=== PATIENT | male | born 1940 | race Caucasian/White ===

== ENCOUNTER 2017-08-10 12:36 | Inpatient (IN) | payer OTHER, MEDICAID ==
[2017-08-10 12:41] VITALS: BMI 26.1
--- NOTE | 2017-08-10 12:50 | DR.SOBA ---
HPI - Time Seen Time seen: 12:45 - Primary Care Physician Primary Care Physician: KEITH - Complaints Chief Complaint Doctors Comments: Patient presents with increasing shortness of breath for the past week. He denies fever, vomiting or diarrhea. He states that he uses oxygen at home w/o having to increase for comfort. He denies getting the influenza shot. Chief Complaint:: PT. C/O SHORTNESS OF BREATH X 1 WEEK AND GENERALIZED WEAKNESS - Source History Provided: Patient, Family Member - Mode of Arrival Mode of Arrival: Ambulatory - Timing Onset of Chief Complaint: 08/03/17 PMH - PMH Past Medical History: Yes Past Medical History: Dyslipidemia, Hypertension Past Surgical History: Yes Surgical History: CABG/Valve Surgery - Family History History of Family Medical Conditions: Yes Family Medical History: Cancer, [place] - Social History Does patient currently use any type of tobacco product: Yes Have you used tobacco products in the last 12 months: Yes Type of Tobacco Use: Cigarettes Does any household member use tobacco: No Alcohol Use: Occasionally Do you use any recreational Drugs:: No Lives With: Family Lives Where: Home - infectious screening In the last 2 months have you had wt loss of >10#?: NO Have you had fever, night sweats or hemotysis?: No Have you traveled outside the country in the last 6 months?: No Isolation: Standard ROS - Review of Systems Constitutional: negative: Diaphoresis Eyes: No Symptoms Reported ENTM: No Symptoms Reported Respiratoy: Short of Breath Cardiovascular: No Symptoms Reported Gastrointestinal/Abdominal: No Symptoms Reported Genitourinary: No Symptoms Reported Neurological: No Symptoms Reported Musculoskeletal: No Symptoms Reported Integumentary: No Symptoms Reported Hematologic/Lymphatic: No Symptoms Reported Endocrine: No Symptoms Reported Psychiatric: No Symptoms Reported All Other Systems: Reviewed and Negative PE - Vital Signs Vitals: Temperature 98.5 F Pulse Rate [Right Brachial] 88 Pulse Rate 97 Respiratory Rate 20 Blood Pressure [Right Arm] 152/65 Blood Pressure 146/67 O2 Sat by Pulse Oximetry 92 - General Limitations: No Limitations General Appearance: Alert, In No Apparent Distress - Head Head Exam: Normal Inspection, Atraumatic - Eyes Eye exam: Normal Appearance, PERRL, EOMI - ENT ENT Exam: Normal Exam - Neck Neck Exam: Normal Inspection, Full ROM - Chest Chest Inspection: Normal Inspection, Symmetric Chest Wall Rise - Respiratory Respiratory Exam: Normal Lung Sounds Bilat Respiratory Exam: Bilateral Clear to Auscultation - Cardiovascular Cardiovascular Exam: Regular Rate, Normal Rhythm - Abdominal Exam Abdominal Exam: Normal Inspection Abdominal Tenderness: negative: RUQ, RLQ, LUQ, LLQ, Epigastrium, Suprapubic, Diffuse, Mild, Moderate, Severe, Other - Extremities Extremities Exam: Edema (2-3+lower) - Back Back Exam: Normal Inspection, Full ROM - Neurologic Neurological Exam: Alert, Oriented X3, CN II-XII Intact - Psychiatric Psychiatric Exam: Normal Affect, Normal Mood - Skin Skin Exam: Warm, Dry, Intact Course - Reevaluation 1st: Improved - Consultation Called: 16:55 (Dr Brock agreed to admit for further evaluation and treatment) ROR - Labs Reviewed Result Diagrams: 08/10/17 13:05 08/10/17 13:05 Laboratory: WBC 7.1 X10^3/uL (3.6-10.0) 08/10/17 13:05 RBC 3.26 X10^6/uL (4.7-6.0) L 08/10/17 13:05 Hgb 7.1 g/dL (13.5-18.0) L 08/10/17 13:05 Hct 22.9 % (42.0-54.0) L 08/10/17 13:05 MCV 70.5 fL (80.0-100.0) L 08/10/17 13:05 MCH 21.8 pg (27.0-34.0) L 08/10/17 13:05 MCHC 31.0 g/dL (33.0-35.0) L 08/10/17 13:05 RDW 22.6 % (11.6-16.5) H 08/10/17 13:05 Plt Count 281 X10^3/uL (150.0-450.0) 08/10/17 13:05 Plt Count Comment Adequate (ADEQUATE) 08/10/17 13:05 MPV 9.7 fL (7.4-11.0) 08/10/17 13:05 Neut % 75.6 % (42.0-75.0) H 08/10/17 13:05 Lymph % 11.3 % (21.0-51.0) L 08/10/17 13:05 Stoddard % 11.1 % (0.0-13.0) 08/10/17 13:05 Eos % 0.7 % (0.9-2.9) L 08/10/17 13:05 Baso % 1.3 % (0.2-1.0) H 08/10/17 13:05 Neut # 5.3 x10^3/uL (2.2-4.8) H 08/10/17 13:05 Lymph # 0.8 X10^3/uL (1.3-2.9) L 08/10/17 13:05 Stoddard # 0.8 x10^3/uL (0.3-0.8) 08/10/17 13:05 Eos # 0.0 x10^3/uL (0.0-0.2) 08/10/17 13:05 Baso # 0.1 X10^3/uL (0.0-0.1) 08/10/17 13:05 Absolute Nucleated RBC 0.4 /100WBC 08/10/17 13:05 Plt Morphology Comment Normal (NORMAL) 08/10/17 13:05 RBC Morphology Abnormal (NORMAL) 08/10/17 13:05 Hypochromasia 2+ A 08/10/17 13:05 Poikilocytosis Slight A 08/10/17 13:05 Anisocytosis 2+ A 08/10/17 13:05 Microcytosis 1+ A 08/10/17 13:05 Target Cells Slight A 08/10/17 13:05 D-Dimer 2070 ng/mL (0-400) H* 08/10/17 13:05 Sample Site Rra 08/10/17 15:08 ABG pH 7.440 (7.35-7.45) 08/10/17 15:08 ABG pCO2 37.0 mmHg (35.0-45.0) 08/10/17 15:08 ABG pO2 59.0 mmHg (80.0-100.0) L 08/10/17 15:08 ABG HCO3 25.1 mmol/L (22-26) 08/10/17 15:08 ABG O2 Saturation 91.0 % (90-100) 08/10/17 15:08 ABG Base Excess 1.1 mmol/L (-2.0-2.0) 08/10/17 15:08 Piotr Test Pos 08/10/17 15:08 A-a Gradient 94.0 mmHg 08/10/17 15:08 FiO2 28.000 08/10/17 15:08 Blood Gas Comments Audrey well mm cs 08/10/17 15:08 Sodium 138 mmol/L (136-145) 08/10/17 13:05 Corrected Sodium 140 mmol/L (136-145) 08/10/17 13:05 Potassium 4.8 mmol/L (3.5-5.1) 08/10/17 13:05 Chloride 104 mmol/L (98-107) 08/10/17 13:05 Carbon Dioxide 25.7 mmol/L (21-32) 08/10/17 13:05 BUN 13 mg/dL (7-18) 08/10/17 13:05 Creatinine 1.14 mg/dL (0.70-1.30) 08/10/17 13:05 Est GFR (MDRD) Af Amer > 60 (>60) 08/10/17 13:05 Est GFR (MDRD) Non-Af > 60 (>60) 08/10/17 13:05 Glucose 166 mg/dL (65-99) H 08/10/17 13:05 Calcium 7.8 mg/dL (8.5-10.1) L 08/10/17 13:05 Corrected Calcium 8.7 mg/dL (8.5-10.1) 08/10/17 13:05 Total Bilirubin 0.30 mg/dL (0.2-1.0) 08/10/17 13:05 AST 43 Units/L (15-37) H 08/10/17 13:05 ALT 52 Units/L (12-78) 08/10/17 13:05 Alkaline Phosphatase 99 Units/L (46-116) 08/10/17 13:05 Creatine Kinase 47 Units/L (39-308) 08/10/17 13:05 CK-MB (CK-2) < 1.0 ng/mL (0-4.0) 08/10/17 13:05 CK/CKMB % Calc 2.1 % (<4) 08/10/17 13:05 Troponin I 0.19 ng/mL (0-1.5) 08/10/17 13:05 Total Protein 6.8 g/dL (6.4-8.2) 08/10/17 13:05 Albumin 2.9 g/dL (3.4-5.0) L 08/10/17 13:05 Globulin 3.9 g/dL (2.5-4.5) 08/10/17 13:05 Albumin/Globulin Ratio 0.7 Ratio (1.1-2.1) L 08/10/17 13:05 Influenza Type A (PCR) Negative (NEGATIVE) 08/10/17 12:57 Influenza Type B (PCR) Negative (NEGATIVE) 08/10/17 12:57 - XRAY XRAY Interpreted by: Radiologist (Chest: Continued cardiac enlargement with findings of previous sternotomy (05/25/16). There are bilateral lower lobe airspace densities with pleural reaction. The central vessels are congested. No pneumothorax is seen. Impression: Stable cardiac enlargement and post CABG. Interval appearance of bibasal infiltrates and pleural effusions with may represent any combination of CHF and pneumonia.) - Diagnosis Discharge Problem: Pneumonia-Bibasilar CHF (congestive heart failure) Qualifiers: Congestive heart failure type: unspecified congestive heart failure type Congestive heart failure chronicity: acute Qualified Code(s): I50.9 - Heart failure, unspecified - Discharge Plan Condition: Stable - Follow ups/Referrals Follow ups/Referrals: KVNG PARKER [Primary Care Provider] - 3 days - Instructions
[2017-08-10 13:21] LABS: BASOPHILS # (AUTO) 0.1 X10^3/uL (0.0-0.1); BASOPHILS % (AUTO) 1.3 % (0.2-1.0); EOSINOPHILS % (AUTO) 0.7 % (0.9-2.9); HEMATOCRIT 22.9 % (42.0-54.0); HEMOGLOBIN 7.1 g/dL (13.5-18.0); LYMPHOCYTES # (AUTO) 0.8 X10^3/uL (1.3-2.9); LYMPHOCYTES % (AUTO) 11.3 % (21.0-51.0); MEAN CORPUSCULAR HEMOGLOBIN 21.8 pg (27.0-34.0); MEAN CORPUSCULAR VOLUME 70.5 fL (80.0-100.0); MEAN PLATELET VOLUME 9.7 fL (7.4-11.0); MONOCYTES # (AUTO) 0.8 x10^3/uL (0.3-0.8); MONOCYTES % (AUTO) 11.1 % (0.0-13.0); NEUTROPHILS # (AUTO) 5.3 x10^3/uL (2.2-4.8); NEUTROPHILS % (AUTO) 75.6 % (42.0-75.0); PLATELET COUNT 281 X10^3/uL (150.0-450.0); RED BLOOD COUNT 3.26 X10^6/uL (4.7-6.0); RED CELL DISTRIBUTION WIDTH 22.6 % (11.6-16.5); WHITE BLOOD COUNT 7.1 X10^3/uL (3.6-10.0)
--- NOTE | 2017-08-10 13:31 | RAD ---
Examination: AP chest History: SOB Comparison reference 05/25/2016 Findings: Continued cardiac enlargement with findings of previous sternotomy. There are bilateral low er lobe airspace densities with pleural reaction. The central vessels are congested. No pneumothorax is seen. Impression: Stable cardiac enlargement and post CABG. Interval appearance of bibasal infiltrates and pleural effusions which may represent any combination of CHF and pneumonia. Reported By:
[2017-08-10 13:37] LABS: BLOOD UREA NITROGEN 13 mg/dL (7-18); CALCIUM 7.8 mg/dL (8.5-10.1); CARBON DIOXIDE 25.7 mmol/L (21-32); CHLORIDE 104 mmol/L (98-107); COR NA(FOR HYPERGLY) 140 mmol/L (136-145); CREATININE 1.14 mg/dL (0.70-1.30); SODIUM 138 mmol/L (136-145); TROPONIN I 0.19 ng/mL (0-1.5); eGFR BLACK RACES > 60 (>60); eGFR NON BLACK RACES > 60 (>60)
[2017-08-10 13:43] LABS: ALANINE AMINOTRANSFERASE 52 Units/L (12-78); ALBUMIN 2.9 g/dL (3.4-5.0); ALKALINE PHOSPHATASE 99 Units/L (46-116); ASPARTATE AMINO TRANSFERASE 43 Units/L (15-37); CKMB % 2.1 % (<4); COR CA(FOR HYPOALB) 8.7 mg/dL (8.5-10.1); CREATINE KINASE 47 Units/L (39-308); CREATINE KINASE MB < 1.0 ng/mL (0-4.0); TOTAL PROTEIN 6.8 g/dL (6.4-8.2)
[2017-08-10 13:49] LABS: HYPOCHROMASIA 2+; PLATELET MORPHOLOGY COMMENT NORMAL (NORMAL); POIKILOCYTOSIS SLIGHT
[2017-08-10 13:50] LABS: ANISOCYTOSIS 2+; MICROCYTOSIS 1+; TARGET CELLS SLIGHT
[2017-08-10] MEDS ORDERED: LASIX IVP SCH (14:00)
[2017-08-10] MEDS ORDERED: LASIX IVP ONE (14:38)
[2017-08-10] MEDS ORDERED: DUONEB 0.5 MG/3 MG NEB SCH (14:45)
[2017-08-10 15:11] LABS: ABG BASE EXCESS 1.1 mmol/L (-2.0-2.0); ABG HCO3 25.1 mmol/L (22-26)
[2017-08-10 15:12] LABS: ABG ALLEN TEST POS
--- NOTE | 2017-08-10 15:22 | CT ---
HISTORY: Dyspnea, elevated D-dimer Study: CTA chest Comparison: None Technique: Serial axial images were obtained from thoracic inlet to the upper abdomen with of IV cont rast. Coronal and sagittal three-dimensional reformatted images were also submitted utilizing CTA pro tocol. Findings: Scattered mostly subcentimeter lymph nodes measured across their short axis are noted within the medi astinum. Images demonstrate soft tissue density in irregularity can the region of the left sternoclav icular joint. Correlate clinically. The heart is enlarged. Atherosclerotic changes are seen within th e visualized coronary arteries and aorta. Timing of the contrast bolus is suboptimal and nondiagnosti c for pulmonary emboli. Emphysematous changes are seen within both lungs. Bilateral pleural effusions are demonstrated as well left greater than right fissural fluid is noted on the right as well. Atele ctasis and/or infiltrate are seen within both lower lobes. Degenerative changes of the visualized spi ne are noted. IMPRESSION: Suboptimal timing of the contrast bolus resulting in nondiagnostic images for pulmonary emboli. Emphysematous changes with bibasilar atelectasis and/or infiltrate. Bilateral pleural effusions left greater than right. Cardiomegaly. Other findings as noted above. Reported By:
[2017-08-10] MEDS ORDERED: NS 1000 ML 1,000 ML ONE (15:38)
[2017-08-10] MEDS: LEVAQUIN PREMIX IV 750 MG 750 MG/150 ML BAG IV SCH (15:49)
--- NOTE | 2017-08-10 16:52 | CT ---
HISTORY: Dyspnea and elevated D-dimer. Study: CT chest with contrast Comparison: CT chest and chest x-ray dated same day. Technique: Multiple axial images of the chest were obtained from the thoracic inlet to the upper abdo men after the administration of IV contrast. MIP images were obtained. Dose reduction techniques incl uding Automated Exposure Control (AEC) and adjustment of mA and kV were utilized. Findings: The mediastinum does not demonstrate significant pathological lymphadenopathy. There is no paracardi al effusion observed. The thoracic aorta is normal in its contour without evidence for aneurysmal di latation. The central pulmonary arterial system does not demonstrate central filling defects to sugg est pulmonary emboli. Thoracic aorta and coronary artery calcifications appear unchanged. Cardiomegal y without obvious right heart strain. Moderate centrilobular emphysematous changes. Moderate left and small right pleural effusions with as sociated compressive atelectasis versus infiltrate. Interlobular septal thickening and fluid within t he fissures. No obvious suspicious pulmonary nodule, mass, or pneumothorax. Bibasilar scarring versus atelectasis. The upper abdominal and osseous structures appear unchanged. IMPRESSION: 1. No CT evidence of acute pulmonary embolus. 2. Constellation of findings likely representing pulmonary edema secondary to congestive heart failur e. Underlying infiltrate not entirely excluded. Reported By:
[2017-08-10] MEDS ORDERED: TUSSIONEX PENNKINETIC SUSP PO PRN (17:04)
[2017-08-10] MEDS ORDERED: ALBUTEROL SULFATE INH PRN (17:09)
[2017-08-10] MEDS ORDERED: COLCRYS TAB 0.6 MG PO SCH (17:09)
[2017-08-10] MEDS ORDERED: SALINE 0.9% 3 ML NEB TX ONE ×2 (17:43→17:44)
[2017-08-10] MEDS: NS 1/2 1000 ML IV 1,000 ML IV SCH (18:28)
[2017-08-10] MEDS ORDERED: VENTOLIN or PROAIR HFA IN PRN (18:29)
[2017-08-10] MEDS ORDERED: COLCRYS TAB 0.6 MG PO PRN (19:00)
[2017-08-10 19:56] LABS: CKMB % 2.1 % (<4); CREATINE KINASE MB 1.2 ng/mL (0-4.0); TROPONIN I 0.23 ng/mL (0-1.5)
[2017-08-10] MEDS: PULMICORT NEB TX 0.5 MG NEB SCH (20:53)
[2017-08-10] MEDS: DUONEB 0.5 MG/3 MG NEB SCH (20:53)
[2017-08-10] MEDS: ROBITUSSIN DM PO SCH (21:32)
[2017-08-10] MEDS: PLETAL PO SCH (21:32)
[2017-08-11 01:45] LABS: CKMB % 2.1 % (<4); CREATINE KINASE MB 1.1 ng/mL (0-4.0); TROPONIN I 0.28 ng/mL (0-1.5)
[2017-08-11 05:22] LABS: ALANINE AMINOTRANSFERASE 48 Units/L (12-78); ALBUMIN 2.9 g/dL (3.4-5.0); ALKALINE PHOSPHATASE 92 Units/L (46-116); ASPARTATE AMINO TRANSFERASE 36 Units/L (15-37); BLOOD UREA NITROGEN 12 mg/dL (7-18); CARBON DIOXIDE 26.4 mmol/L (21-32); CHLORIDE 104 mmol/L (98-107); COR CA(FOR HYPOALB) 8.9 mg/dL (8.5-10.1); CREATININE 0.89 mg/dL (0.70-1.30); SODIUM 140 mmol/L (136-145); TOTAL PROTEIN 6.8 g/dL (6.4-8.2); eGFR BLACK RACES > 60 (>60); eGFR NON BLACK RACES > 60 (>60)
[2017-08-11 05:28] LABS: BASOPHILS # (AUTO) 0.1 X10^3/uL (0.0-0.1); BASOPHILS % (AUTO) 1.2 % (0.2-1.0); EOSINOPHILS # (AUTO) 0.1 x10^3/uL (0.0-0.2); EOSINOPHILS % (AUTO) 0.9 % (0.9-2.9); HEMATOCRIT 21.6 % (42.0-54.0); LYMPHOCYTES # (AUTO) 1.6 X10^3/uL (1.3-2.9); MEAN CORPUSCULAR HEMOGLOBIN 21.9 pg (27.0-34.0); MEAN CORPUSCULAR HGB CONC 31.4 g/dL (33.0-35.0); MEAN CORPUSCULAR VOLUME 69.7 fL (80.0-100.0); MEAN PLATELET VOLUME 10.1 fL (7.4-11.0); NEUTROPHILS # (AUTO) 5.1 x10^3/uL (2.2-4.8); NEUTROPHILS % (AUTO) 64.9 % (42.0-75.0); PLATELET COUNT 263 X10^3/uL (150.0-450.0); RED CELL DISTRIBUTION WIDTH 22.5 % (11.6-16.5); WHITE BLOOD COUNT 7.9 X10^3/uL (3.6-10.0)
[2017-08-11 05:49] LABS: HEMOGLOBIN 6.8 g/dL (13.5-18.0)
[2017-08-11 06:25] LABS: ANISOCYTOSIS 2+; HYPOCHROMASIA 2+; MICROCYTOSIS 1+; PLATELET MORPHOLOGY COMMENT NORMAL (NORMAL); POIKILOCYTOSIS 1+
[2017-08-11 06:26] LABS: TARGET CELLS PRESENT
[2017-08-11 06:47] LABS: CKMB % 3.3 % (<4); CREATINE KINASE MB 1.8 ng/mL (0-4.0); TROPONIN I 0.35 ng/mL (0-1.5)
--- NOTE | 2017-08-11 07:13 | RAD ---
Examination: Chest, PA and lateral views History: Pneumonia, CHF Comparison reference 08/10/2017 Findings: Continued cardiomegaly and vascular congestion. Interval improvement in aeration of the natasha gs especially in the lower lobes. Persistent airspace disease and pleural fluid. No new abnormality. Impression: Interval improvement since 1 day prior. Reported By:
[2017-08-11] MEDS ORDERED: LEVAQUIN PREMIX IV 750 MG 750 MG/150 ML BAG IV SCH (09:00)
[2017-08-11] MEDS ORDERED: NS 1/2 1000 ML IV 1,000 ML IV ONE (09:15)
[2017-08-11] MEDS: DUONEB 0.5 MG/3 MG NEB SCH ×4 (09:24→20:49)
[2017-08-11] MEDS: PULMICORT NEB TX 0.5 MG NEB SCH ×2 (09:24→20:49)
[2017-08-11] MEDS: NS 1/2 1000 ML IV 1,000 ML IV SCH (09:47)
[2017-08-11] MEDS: PLETAL PO SCH ×2 (09:48→20:26)
[2017-08-11] MEDS: LASIX IVP SCH ×3 (09:49→20:35)
[2017-08-11] MEDS: ROBITUSSIN DM PO SCH ×4 (09:49→20:24)
[2017-08-11] MEDS: LIPITOR TAB 40 MG PO SCH (09:49)
[2017-08-11] MEDS: ZESTRIL TAB 10 MG PO SCH (09:49)
[2017-08-11] MEDS: LEVAQUIN PREMIX IV 750 MG 750 MG/150 ML BAG IV SCH (09:49)
[2017-08-11] MEDS: AVODART PO SCH (09:49)
[2017-08-11] MEDS: ASPIRIN EC 81 MG PO SCH (09:49)
[2017-08-11] MEDS: ZETIA TAB 10 MG PO SCH (09:49)
[2017-08-11] MEDS ORDERED: COLACE CAP 100 MG PO PRN (09:51)
[2017-08-11] MEDS ORDERED: MILK OF MAGNESIA PO PRN (09:51)
[2017-08-11] MEDS ORDERED: BENADRYL INJ 50 MG VIAL IVP PRN (11:05)
[2017-08-11] MEDS ORDERED: TYLENOL 325 MG TAB PO PRN (11:05)
[2017-08-11] MEDS ORDERED: NS 500 ML IV 500 ML IV ONE (11:05)
[2017-08-11] MEDS ORDERED: ALBUTEROL SULFATE PO PRN (11:39)
[2017-08-11] MEDS ORDERED: FLUTICASONE PROPIONATE 110 MCG PO PRN (11:39)
[2017-08-11] MEDS ORDERED: RESTORIL CAP 30 MG PO PRN (11:39)
[2017-08-11] MEDS ORDERED: CITALOPRAM HYDROBROMIDE PO SCH (11:45)
[2017-08-11] MEDS ORDERED: PATIENT'S HOME MEDICATION (Tizanidine Hcl [Zanaflex 4 Mg] 1 TAB) PO SCH (11:45)
[2017-08-11] MEDS ORDERED: ZANAFLEX PO PRN (12:31)
[2017-08-11] MEDS ORDERED: PROVENTIL NEB TX 0.083% 2.5MG/ 3ML NEB PRN (12:32)
[2017-08-11] MEDS: PROTONIX INJ 40 MG VIAL IVP SCH ×2 (12:43→20:24)
[2017-08-11] MEDS: PEPCID 20 MG IV PREMIX* 20 MG/50 ML BAG IV SCH ×2 (12:43→20:27)
[2017-08-11] MEDS ORDERED: NS 250 ML IV 250 ML IV ONE ×2 (14:36→15:30)
[2017-08-11] MEDS: LEVSIN/MAALOX/LIDOC VISC PO SCH ×2 (17:20→20:24)
--- NOTE | 2017-08-11 23:05 | DR.H&P ---
H&P - History & Physical for Day of: H&P Date: 08/10/17 - Chief Complaint Chief Complaint: short of breath, weakness - Allergies Allergies/Adverse Reactions: Allergies Allergy/AdvReac Type Severity Reaction Status Date / Time No Known Drug Allergies Allergy Verified 08/10/17 12:41 - History of Present Illness History of Present Illness: is a 76 year old patient of Ameena Ann who presented to the emergency room with reports of shortness of breath and generalized weakness. Patient also reports a persistant, productive cough. Patient reports that symptoms started approximately one week ago and have progressively gotten worse. He reports use of home oxygen. Patient states that he has had to increase oxygen to 4 liter/minute at home to obtain comfort. Patient denies fever, vomiting, or diarrhea. Patient reports a medical history of: CAD, Hyperlipidemia, Hypertension, Pneumonia. Oxygen saturation was noted to be 89% on room air when patient arrived to the ER. He was placed on nasal cannula at 3 L/min. On examination, heart is normal in rate and rhythm. Lungs sounds were noted to be diminished throughout. Abdomen round, soft, and non- tender with normal bowel sounds noted in all quadrants. Good movement noted to all extremities. 2+ pitting edema is noted to bilateral lower extremities. Vital signs on arrival were 98.5, 97, 22, 89% RA, 146/67. Labs were obtained. Abnormal labs values include the following: RBC 3.26, Hgb 7.1, Hct 22.9, MCV 70.5, MCH 21.8, MCHC 31.0, RDW 22.6, Neut% 75.6, Lymph% 11.3, Eos% 0.7, Baso% 1.3, Neut# 5.3, Lymph# 0.8, Hypochromasia 2+, Poikilocytosis Slight, Anisocytosis 2+, Micorcytosis 1+, Target Cells Slight, D-Dimer 2070, Glucose 166 , Calcium 7.8, AST 43, Albumin 2.9, A/G Ratio 0.7. Blood Cultures x2 Pending. ABG reports: PH: 7.440, PC02 37, PO2 59.0, HC03 25.1, O2 saturation 91%. EKG reported: Sinus Rhythm. Rate=89. Chest X-Ray reported: Stable cardiac enlargement and post CABG. Interval appearance of bibasal infiltrates and pleural effusions which may represent any combination of CHF and pneumonia. Chest CTA reported: @1346 Suboptimal timing of the contrast bolus resulting in non-diagnostic images for pulmonary emboli. Emphysematous changes with bibasilar atelectasis and/or infiltrate. Bilateral pleural effusions left greater than right. Cardiomegaly. A repeat CTA was obtained and reported: @ [address] evidence of acute pulmonary embolus. Constellation of findings likely representing pulmonary edema secondary to congestive heart failure. Underlying infiltrate not entirely excluded. Patient was given Lasix 40mg x 1 and duoneb x 1 in the ER with only slight improvement in symptoms noted. We admitted patient for further treatment and evaluation. He was started on the pneumonia protocol on Levaquin 750mg iv daily, respiratory tx and inhalers, Lasix 40mg iv daily, and NS at 75ml/hr. We plan to follow up with AM labs and continue to monitor patient. - Past Medical History Past Medical History: CHF, Coronary Artery Disease, Dyslipidemia, Hypertension - Past Surgical History Surgical History: CABG/Valve Surgery - Family History Family Medical History: Cancer, [place] - Social History Does patient currently use any type of tobacco product: Yes Have you used tobacco products in the last 12 months: Yes Type of Tobacco Use: Cigarettes Does any household member use tobacco: No Alcohol Use: Occasionally Drug Use: Prescription Drugs - Medications Home Medications: Albuterol Sulfate [Proair Hfa] 2 inhalation PO Q4H PRN 08/10/17 [History Confirmed 08/10/17] Aspirin [Adult Low Dose Aspirin EC] 1 tab PO DAILY 08/10/17 [History Confirmed 08/10/17] Atorvastatin Calcium [LIPITOR Tab 40 mg *] 1 tab PO DAILY 08/10/17 [History Confirmed 08/10/17] Cilostazol [PLETAL tab 100 mg *] 1 tab PO BID 08/10/17 [History Confirmed ] Citalopram Hydrobromide [Celexa 10 mg] 1 tab PO DAILY 08/10/17 [History Confirmed 08/10/17] Colchicine [Colcrys Tab 0.6 mg] 1 tab PO PRN PRN 08/10/17 [History Confirmed 06/17] Ezetimibe [ZETIA 10 MG *] 1 tab PO DAILY 08/10/17 [History Confirmed 08/10/17] Fluticasone Propionate [Flovent HFA 220 mcg] 110 mcg PO BID PRN 08/10/17 [ History Confirmed 08/10/17] Lisinopril [ZESTRIL *] 1 tab PO DAILY 08/10/17 [History Confirmed 08/10/17] Temazepam [RESTORIL 30 MG (GENERIC) *] 1 tab PO HS PRN 08/10/17 [History Confirmed 08/10/17] Tizanidine HCl [Zanaflex 4 mg] 1 tab PO Q8H 08/10/17 [History Confirmed 08/10/17 ] - Review of Systems Constitutional: Weakness. denies: No Symptoms Reported, See HPI, Fever, Chills , Sweats, Malaise, Other Eyes: No Symptoms Reported. denies: See HPI, Pain, Vision Change, Conjunctivae Inflammation, Eyelid Inflammation, Redness, Other ENT: No Symptoms Reported. denies: See HPI, Ear Pain, Ear Discharge, Nose Pain , Nose Discharge, Nose Congestion, Mouth Pain, Mouth Swelling, Throat Pain, Throat Swelling, Other Respiratory: Cough, Shortness of Breath, SOB with Excertion Cardiovascular: Edema (bilateral lower extremity 2+ pitting edema. ) Gastrointestinal: No Symptoms Reported. denies: See HPI, Nausea, Vomiting, Abdominal Pain, Diarrhea, Constipation, Melena, Hematochezia, Other Genitourinary: No Symptoms Reported. denies: See HPI, Dysuria, Frequency, Incontinence, Hematuria, Retention, Other Musculoskeletal: No Symptoms Reported. denies: See HPI, Shoulder Pain, Arm Pain , Back Pain, Hand Pain, Leg Pain, Foot Pain, Neck Pain, Other Skin: No Symptoms Reported. denies: See HPI, Rash, Lesions, Jaundice, Bruising , Wound, Ecchymosis, Other Neurological: Weakness - Physical Exam Vital Signs: Temperature 98.1 F Pulse Rate [Right Brachial] 90 Pulse Rate 91 Respiratory Rate 20 Blood Pressure [Right Arm] 101/55 Blood Pressure 146/67 O2 Sat by Pulse Oximetry 93 Oriented: Normal. negative: Time, Person, Place, Not Oriented, Unable to test, Other Eyes: Normal. negative: Blurred Vision, Diplopia, Discharge, Pain, Redness, Photophobia, Other Ear: Normal. negative: Right, Left, Swelling, Ecchymosis, Hemotypanum, Abrasion , Laceration Nose: Normal. negative: Injected, Discharge, Blood, Other Throat: Normal. negative: Tonsillar Hypertrophy, Red, Exudate, Dry, Other Respiratory: Diminished Throughout Cardiovascular: Edema (bilateral lower extremity 2+ pitting edema) : Normal Auscultation: Bowel Sounds: Normal Palpation: Normal Tenderness: Normal Skin: Decreased Turgur Musculoskeletal: Normal Psychiatric: Normal Mood Description: Calm Affect: Normal Speech Pattern: Clear - Assessment/Plan (1) Pneumonia Qualifiers: Pneumonia type: due to unspecified organism Laterality: bilateral Lung location: lower lobe of lung Qualified Code(s): J18.9 - Pneumonia, unspecified organism Status: Acute Plan: pneumonia protocol, levaquin 750mg iv daily, respiratory tx, supplemental oxygen, monitor labs and chest xray (2) CHF (congestive heart failure) Qualifiers: Congestive heart failure type: unspecified congestive heart failure type Congestive heart failure chronicity: acute Qualified Code(s): I50.9 - Heart failure, unspecified Status: Acute Plan: lasix 20mg iv bid, obtain echo in am, respiratory tx and inhalers, supplemental oxygen, continue to monitor labs and chest xray.
[2017-08-12] MEDS: NS 1/2 1000 ML IV 1,000 ML IV SCH ×2 (01:02→10:06)
[2017-08-12 06:34] LABS: BASOPHILS # (AUTO) 0.1 X10^3/uL (0.0-0.1); BASOPHILS % (AUTO) 1.1 % (0.2-1.0); EOSINOPHILS # (AUTO) 0.2 x10^3/uL (0.0-0.2); EOSINOPHILS % (AUTO) 2.6 % (0.9-2.9); HEMATOCRIT 24.3 % (42.0-54.0); HEMOGLOBIN 7.9 g/dL (13.5-18.0); LYMPHOCYTES # (AUTO) 1.5 X10^3/uL (1.3-2.9); LYMPHOCYTES % (AUTO) 18.5 % (21.0-51.0); MEAN CORPUSCULAR HEMOGLOBIN 23.2 pg (27.0-34.0); MEAN CORPUSCULAR HGB CONC 32.6 g/dL (33.0-35.0); MEAN CORPUSCULAR VOLUME 71.2 fL (80.0-100.0); MEAN PLATELET VOLUME 9.2 fL (7.4-11.0); MONOCYTES # (AUTO) 1.1 x10^3/uL (0.3-0.8); MONOCYTES % (AUTO) 13.1 % (0.0-13.0); NEUTROPHILS # (AUTO) 5.3 x10^3/uL (2.2-4.8); NEUTROPHILS % (AUTO) 64.7 % (42.0-75.0); PLATELET COUNT 201 X10^3/uL (150.0-450.0); RED BLOOD COUNT 3.41 X10^6/uL (4.7-6.0); RED CELL DISTRIBUTION WIDTH 23.8 % (11.6-16.5); WHITE BLOOD COUNT 8.1 X10^3/uL (3.6-10.0)
[2017-08-12 06:48] LABS: ALANINE AMINOTRANSFERASE 37 Units/L (12-78); ALBUMIN 2.7 g/dL (3.4-5.0); ALKALINE PHOSPHATASE 83 Units/L (46-116); ASPARTATE AMINO TRANSFERASE 30 Units/L (15-37); BLOOD UREA NITROGEN 10 mg/dL (7-18); CALCIUM 7.9 mg/dL (8.5-10.1); CARBON DIOXIDE 27.5 mmol/L (21-32); CHLORIDE 101 mmol/L (98-107); COR CA(FOR HYPOALB) 8.9 mg/dL (8.5-10.1); CREATININE 0.89 mg/dL (0.70-1.30); SODIUM 136 mmol/L (136-145); TOTAL PROTEIN 6.4 g/dL (6.4-8.2); eGFR BLACK RACES > 60 (>60); eGFR NON BLACK RACES > 60 (>60)
[2017-08-12 06:51] LABS: ANISOCYTOSIS 2+; HYPOCHROMASIA 1+; PLATELET MORPHOLOGY COMMENT NORMAL (NORMAL)
--- NOTE | 2017-08-12 07:10 | RAD ---
08/11/2017 Examination: Portable AP chest History: Pneumonia, CHF Comparison [id number] Findings: No change in cardiomegaly or pleural-parenchymal density at the right base. Interval improv ement in aeration of the left lower lobe. No new abnormality noted. Impression: Interval improvement in aeration of the left lower lobe with decreasing left pleural reac tion. No change otherwise. Reported By:
[2017-08-12] MEDS: PULMICORT NEB TX 0.5 MG NEB SCH ×2 (08:46→21:46)
[2017-08-12] MEDS: DUONEB 0.5 MG/3 MG NEB SCH ×4 (08:46→21:46)
[2017-08-12] MEDS ORDERED: NS 1/2 1000 ML IV 1,000 ML IV ONE (09:00)
[2017-08-12] MEDS: PEPCID 20 MG IV PREMIX* 20 MG/50 ML BAG IV SCH ×2 (10:06→21:22)
[2017-08-12] MEDS: PROTONIX INJ 40 MG VIAL IVP SCH ×2 (10:07→21:24)
[2017-08-12] MEDS: LASIX IVP SCH ×2 (10:10→21:22)
[2017-08-12] MEDS: ROBITUSSIN DM PO SCH ×4 (10:11→21:24)
[2017-08-12] MEDS: CELEXA PO SCH (10:11)
[2017-08-12] MEDS: ZESTRIL TAB 10 MG PO SCH (10:13)
[2017-08-12] MEDS: LEVSIN/MAALOX/LIDOC VISC PO SCH ×4 (10:13→21:22)
[2017-08-12] MEDS: LIPITOR TAB 40 MG PO SCH (10:13)
[2017-08-12] MEDS: ZETIA TAB 10 MG PO SCH (10:13)
[2017-08-12] MEDS: ASPIRIN EC 81 MG PO SCH (10:13)
[2017-08-12] MEDS: PLETAL PO SCH ×2 (10:15→21:23)
[2017-08-12] MEDS: LEVAQUIN PREMIX IV 750 MG 750 MG/150 ML BAG IV SCH (11:33)
[2017-08-12] MEDS ORDERED: NS 250 ML IV 250 ML IV ONE ×2 (13:20→14:46)
[2017-08-12] MEDS ORDERED: TYLENOL 325 MG TAB PO ONE (13:26)
[2017-08-12] MEDS ORDERED: BENADRYL INJ 50 MG VIAL IVP ONE (13:27)
--- NOTE | 2017-08-12 18:25 | PCM.PROG ---
Progress Note - Progress Note for Day of Date: 08/11/17 - Subjective Subjective: WAS ADMITTED FOR PNEUMONIA AND CHF. TODAY, HE IS ALERT AND ORIENTED, SITTING ON SIDE OF BED ON MORNING ROUNDS. HE CONTINUES WITH COMPLAINTS OF SHORTNESS OF BREATH, PRODUCTIVE COUGH, AND GENERALIZED WEAKNESS. ON EXAMINATION, RHONCHI NOTED THROUGHOUT. HE IS NOTED TO BE UTILIZING OXYGEN VIA NASAL CANNULA AT 2L/MIN AT THIS TIME. ABDOMEN IS ROUND, SOFT, AND NON- TENDER WITH NORMAL BOWEL SOUNDS NOTED IN ALL QUADRANTS. THERE IS GOOD RANGE OF MOTION NOTED TO ALL EXTREMITIES. BILATERAL LOWER EXTREMITIES CONTINUE WITH 1+ PITTING EDEMA. HIS VITAL SIGNS THIS MORNING ARE 98.2-93-20-96%-123/58. ABNORMAL LAB VALUES TODAY INCLUDE THE FOLLOWING: RBC 3.10, HGB 6.8, HCT 21.6, GLUCOSE 103 , CALCIUM 8.0, ALBUMIN 2.9, A/G RATIO 0.7. CARDIAC ENZYMES HAVE BEEN WITHIN NORMAL LIMITS. MOST RECENT EKG REPORTS SINUS RHYTHM WITH PVCS. HEART RATE IS 90. HE IS CURRENTLY ON THE PNEUMONIA PROTOCOL AND RECEIVING LEVAQUIN 750MG IV DAILY AND RESPIRATORY TX FOR PNEUMONIA. TODAY, WE WILL OBTAIN AN ECHO. WE WILL TRANSFUSE TWO UNITS OF PACKED RED BLOOD CELLS. WE WILL CHECK H&H POST TRANSFUSION AND CONTINUE TO MONITOR. WE PLAN TO FOLLOW UP WITH AM LABS AND CONTINUE TO MONITOR PATIENT. - Past Medical Family Social History Past Med/Fam/Surg Hx: No changes since H&P Allergies: Allergies No Known Drug Allergies Allergy (Verified 08/10/17 12:41) - Review of Systems ROS: No change since H&P - Vital Signs and I&O's Vital Signs: Temperature 98.0 F Pulse Rate [Right Brachial] 98 Pulse Rate 91 Respiratory Rate 20 Blood Pressure [Right Arm] 120/58 Blood Pressure 146/67 O2 Sat by Pulse Oximetry 93 Intake and Output: Intake & Output 08/10/17 08/11/17 08/12/17 08/13/17 11:59 11:59 11:59 11:59 Intake Total 823 3122 1180 Balance 823 3122 1180 - Physical Exam Oriented: Normal. negative: Time, Person, Place, Not Oriented, Unable to test, Other Eyes: Normal. negative: Blurred Vision, Diplopia, Discharge, Pain, Redness, Photophobia, Other Ear: Normal. negative: Right, Left, Swelling, Ecchymosis, Hemotypanum, Abrasion , Laceration Nose: Normal. negative: Injected, Discharge, Blood, Other Throat: Normal. negative: Tonsillar Hypertrophy, Red, Exudate, Dry, Other Respiratory: Right, Left, Rhonchi Cardiovascular: Edema (bilateral lower extremity 2+ pitting edema) : Normal Auscultation: Bowel Sounds: Normal Palpation: Normal Tenderness: Normal Skin: Decreased Turgur Musculoskeletal: Normal Psychiatric: Normal Mood Description: Calm Affect: Normal Speech Pattern: Clear, Appropriate - Laboratory and Diagnostics Result Diagrams: 08/12/17 13:40 08/12/17 06:10 Labs: 08/10/17 14:07 Blood Blood Culture - Preliminary 08/10/17 14:00 Blood Blood Culture - Preliminary 08/10/17 17:54 Sputum - Expectorated Sputum Sputum Culture - Final 08/10/17 17:54 Sputum - Expectorated Sputum - Final Laboratory WBC 8.1 X10^3/uL (3.6-10.0) 08/12/17 06:10 RBC 3.41 X10^6/uL (4.7-6.0) L 08/12/17 06:10 Hgb 8.2 g/dL (13.5-18.0) L 08/12/17 13:40 Hct 24.3 % (42.0-54.0) L 08/12/17 06:10 MCV 71.2 fL (80.0-100.0) L 08/12/17 06:10 MCH 23.2 pg (27.0-34.0) L 08/12/17 06:10 MCHC 32.6 g/dL (33.0-35.0) L 08/12/17 06:10 RDW 23.8 % (11.6-16.5) H 08/12/17 06:10 Plt Count 201 X10^3/uL (150.0-450.0) 08/12/17 06:10 Plt Count Comment Adequate (ADEQUATE) 08/12/17 06:10 MPV 9.2 fL (7.4-11.0) 08/12/17 06:10 Neut % 64.7 % (42.0-75.0) 08/12/17 06:10 Lymph % 18.5 % (21.0-51.0) L 08/12/17 06:10 [place] % 13.1 % (0.0-13.0) H 08/12/17 06:10 Eos % 2.6 % (0.9-2.9) 08/12/17 06:10 Baso % 1.1 % (0.2-1.0) H 08/12/17 06:10 Neut # 5.3 x10^3/uL (2.2-4.8) H 08/12/17 06:10 Lymph # 1.5 X10^3/uL (1.3-2.9) 08/12/17 06:10 [place] # 1.1 x10^3/uL (0.3-0.8) H 08/12/17 06:10 Eos # 0.2 x10^3/uL (0.0-0.2) 08/12/17 06:10 Baso # 0.1 X10^3/uL (0.0-0.1) 08/12/17 06:10 Absolute Nucleated RBC 0.1 /100WBC 08/12/17 06:10 Plt Morphology Comment Normal (NORMAL) 08/12/17 06:10 RBC Morphology Abnormal (NORMAL) 08/12/17 06:10 Hypochromasia 1+ A 08/12/17 06:10 Poikilocytosis 1+ A 08/11/17 04:20 Anisocytosis 2+ A 08/12/17 06:10 Microcytosis 1+ A 08/11/17 04:20 Target Cells Present 08/11/17 04:20 D-Dimer 2070 ng/mL (0-400) H* 08/10/17 13:05 Sample Site Rra 08/10/17 15:08 ABG pH 7.440 (7.35-7.45) 08/10/17 15:08 ABG pCO2 37.0 mmHg (35.0-45.0) 08/10/17 15:08 ABG pO2 59.0 mmHg (80.0-100.0) L 08/10/17 15:08 ABG HCO3 25.1 mmol/L (22-26) 08/10/17 15:08 ABG O2 Saturation 91.0 % (90-100) 08/10/17 15:08 ABG Base Excess 1.1 mmol/L (-2.0-2.0) 08/10/17 15:08 Piotr Test Pos 08/10/17 15:08 A-a Gradient 94.0 mmHg 08/10/17 15:08 FiO2 28.000 08/10/17 15:08 Blood Gas Comments Audrey well mm cs 08/10/17 15:08 Sodium 136 mmol/L (136-145) 08/12/17 06:10 Corrected Sodium TNP 08/12/17 06:10 Potassium 3.8 mmol/L (3.5-5.1) 08/12/17 06:10 Chloride 101 mmol/L (98-107) 08/12/17 06:10 Carbon Dioxide 27.5 mmol/L (21-32) 08/12/17 06:10 BUN 10 mg/dL (7-18) 08/12/17 06:10 Creatinine 0.89 mg/dL (0.70-1.30) 08/12/17 06:10 Est GFR (MDRD) Af Amer > 60 (>60) 08/12/17 06:10 Est GFR (MDRD) Non-Af > 60 (>60) 08/12/17 06:10 Glucose 82 mg/dL (65-99) 08/12/17 06:10 Calcium 7.9 mg/dL (8.5-10.1) L 08/12/17 06:10 Corrected Calcium 8.9 mg/dL (8.5-10.1) 08/12/17 06:10 Total Bilirubin 1.10 mg/dL (0.2-1.0) H 08/12/17 06:10 AST 30 Units/L (15-37) 08/12/17 06:10 ALT 37 Units/L (12-78) 08/12/17 06:10 Alkaline Phosphatase 83 Units/L (46-116) 08/12/17 06:10 Creatine Kinase 54 Units/L (39-308) 08/11/17 04:20 CK-MB (CK-2) 1.8 ng/mL (0-4.0) 08/11/17 04:20 CK/CKMB % Calc 3.3 % (<4) 08/11/17 04:20 Troponin I 0.35 ng/mL (0-1.5) 08/11/17 04:20 Total Protein 6.4 g/dL (6.4-8.2) 08/12/17 06:10 Albumin 2.7 g/dL (3.4-5.0) L 08/12/17 06:10 Globulin 3.7 g/dL (2.5-4.5) 08/12/17 06:10 Albumin/Globulin Ratio 0.7 Ratio (1.1-2.1) L 08/12/17 06:10 Stool Description Fob tube 08/12/17 12:49 Stl Occult Blood (IFOB) Negative (NEGATIVE) 08/12/17 12:49 Influenza Type A (PCR) Negative (NEGATIVE) 08/10/17 12:57 Influenza Type B (PCR) Negative (NEGATIVE) 08/10/17 12:57 Blood Type O POSITIVE 08/10/17 16:08 Antibody Screen Negative 08/10/17 16:08 Crossmatch See Detail 08/10/17 16:08 - Plan (1) Pneumonia Status: Acute Qualifiers: Pneumonia type: due to unspecified organism Laterality: bilateral Lung location: lower lobe of lung Qualified Code(s): J18.9 - Pneumonia, unspecified organism Plan: pneumonia protocol, levaquin 750mg iv daily, respiratory tx, supplemental oxygen, monitor labs and chest xray (2) CHF (congestive heart failure) Status: Acute Qualifiers: Congestive heart failure type: unspecified congestive heart failure type Congestive heart failure chronicity: acute Qualified Code(s): I50.9 - Heart failure, unspecified Plan: lasix 20mg iv bid, obtain echo in am, respiratory tx and inhalers, supplemental oxygen, continue to monitor labs and chest xray. (3) Anemia Status: Acute Qualifiers: Anemia type: iron deficiency Iron deficiency anemia type: unspecified iron deficiency Qualified Code(s): D50.9 - Iron deficiency anemia, unspecified Plan: TRANSFUSE 2 UNITS PRBC, CONTINUE TO MONITOR (4) Hyperlipidemia Status: Chronic Qualifiers: Hyperlipidemia type: mixed hyperlipidemia Qualified Code(s): E78.2 - Mixed hyperlipidemia (5) Depression Status: Chronic Qualifiers: Depression Type: major depressive disorder Major depression recurrence: recurrent Active/Remission status: remission status unspecified Qualified Code(s): F33.9 - Major depressive disorder, recurrent, unspecified (6) Gout Status: Acute Qualifiers: Gout site: unspecified site Gout etiology: unspecified cause Chronicity: chronic Presence of tophus: without tophus Qualified Code(s): M1A.9XX0 - Chronic gout, unspecified, without tophus (tophi) (7) Hypertension Status: Acute Qualifiers: Hypertension type: essential hypertension Qualified Code(s): I10 - Essential (primary) hypertension
[2017-08-13] MEDS: NS 1/2 1000 ML IV 1,000 ML IV SCH (03:48)
[2017-08-13 06:16] LABS: BASOPHILS # (AUTO) 0.1 X10^3/uL (0.0-0.1); BASOPHILS % (AUTO) 1.6 % (0.2-1.0); EOSINOPHILS # (AUTO) 0.4 x10^3/uL (0.0-0.2); EOSINOPHILS % (AUTO) 4.1 % (0.9-2.9); HEMATOCRIT 31.3 % (42.0-54.0); LYMPHOCYTES # (AUTO) 1.4 X10^3/uL (1.3-2.9); LYMPHOCYTES % (AUTO) 15.9 % (21.0-51.0); MEAN CORPUSCULAR HEMOGLOBIN 24.2 pg (27.0-34.0); MEAN CORPUSCULAR HGB CONC 32.8 g/dL (33.0-35.0); MEAN CORPUSCULAR VOLUME 73.6 fL (80.0-100.0); MEAN PLATELET VOLUME 9.2 fL (7.4-11.0); MONOCYTES % (AUTO) 10.9 % (0.0-13.0); NEUTROPHILS # (AUTO) 5.9 x10^3/uL (2.2-4.8); NEUTROPHILS % (AUTO) 67.5 % (42.0-75.0); PLATELET COUNT 209 X10^3/uL (150.0-450.0); RED BLOOD COUNT 4.25 X10^6/uL (4.7-6.0); WHITE BLOOD COUNT 8.8 X10^3/uL (3.6-10.0)
[2017-08-13 06:22] LABS: HEMOGLOBIN 10.3 g/dL (13.5-18.0)
[2017-08-13 06:25] LABS: ALANINE AMINOTRANSFERASE 34 Units/L (12-78); ALBUMIN 3.1 g/dL (3.4-5.0); ALKALINE PHOSPHATASE 92 Units/L (46-116); ASPARTATE AMINO TRANSFERASE 27 Units/L (15-37); BLOOD UREA NITROGEN 10 mg/dL (7-18); CARBON DIOXIDE 26.6 mmol/L (21-32); CHLORIDE 102 mmol/L (98-107); COR CA(FOR HYPOALB) 8.7 mg/dL (8.5-10.1); CREATININE 0.96 mg/dL (0.70-1.30); SODIUM 138 mmol/L (136-145); eGFR BLACK RACES > 60 (>60); eGFR NON BLACK RACES > 60 (>60)
[2017-08-13 06:30] LABS: ANISOCYTOSIS 2+; HYPOCHROMASIA SLIGHT; PLATELET MORPHOLOGY COMMENT NORMAL (NORMAL)
--- NOTE | 2017-08-13 07:17 | RAD ---
Examination: Portable AP chest History: Pneumonia, CHF Comparison reference 08/12/2017 Findings: Persistent cardiomegaly. Increasing vascular congestion. Increasing parenchymal density in the retrocardiac left lower lung with obscuration of the diaphragm and costophrenic angle. Increasing right pleural effusion. Persistent infiltrate right base. No pneumothorax seen. Impression: Increasing pleural-parenchymal opacity in both bases with pulmonary vascular distention. Stable cardiomegaly. Findings are compatible with pneumonia/CHF. All Reported By:
[2017-08-13 08:22] VITALS: BP 134/63
[2017-08-13] MEDS: PULMICORT NEB TX 0.5 MG NEB SCH (08:50)
[2017-08-13] MEDS: DUONEB 0.5 MG/3 MG NEB SCH (08:50)
[2017-08-13] MEDS: PLETAL PO SCH (09:11)
[2017-08-13] MEDS: LIPITOR TAB 40 MG PO SCH (09:11)
[2017-08-13] MEDS: AVODART PO SCH (09:11)
[2017-08-13] MEDS: ROBITUSSIN DM PO SCH (09:11)
[2017-08-13] MEDS: ZETIA TAB 10 MG PO SCH (09:11)
[2017-08-13] MEDS: PEPCID 20 MG IV PREMIX* 20 MG/50 ML BAG IV SCH (09:11)
[2017-08-13] MEDS: ASPIRIN EC 81 MG PO SCH (09:12)
[2017-08-13] MEDS: ZESTRIL TAB 10 MG PO SCH (09:12)
[2017-08-13] MEDS: LASIX IVP SCH (09:12)
[2017-08-13] MEDS: PROTONIX INJ 40 MG VIAL IVP SCH (09:12)
[2017-08-13] MEDS: CELEXA PO SCH (09:12)
[2017-08-13] MEDS: LEVSIN/MAALOX/LIDOC VISC PO SCH (09:13)
[2017-08-13] MEDS: LEVAQUIN PREMIX IV 750 MG 750 MG/150 ML BAG IV SCH (09:13)
== END 2017-08-13 11:00 | disposition home or self-care (01) | DRG 195 ==
LOC: ER 12:44 → MED/SURG 17:11
PROVIDERS: ADMIT Internal Medicine; ATTEND Internal Medicine
PROC: 30233N1 Transfusion of Nonautologous Red Blood Cells into Peripheral Vein, Percutaneous Approach (ICD-10-PCS; principal; 2017-08-11)
PROC: 30233N1 Transfusion of Nonautologous Red Blood Cells into Peripheral Vein, Percutaneous Approach (ICD-10-PCS; 2017-08-12)
PROC: 30233N1 Transfusion of Nonautologous Red Blood Cells into Peripheral Vein, Percutaneous Approach (ICD-10-PCS; 2017-08-12)
PROC: 30233N1 Transfusion of Nonautologous Red Blood Cells into Peripheral Vein, Percutaneous Approach (ICD-10-PCS; 2017-08-13)
DX: J18.8 Other pneumonia, unspecified organism (principal); I50.9 Heart failure, unspecified; R06.02 Shortness of breath; D50.8 Other iron deficiency anemias; M1A.9XX0 Chronic gout, unspecified, without tophus (tophi); R53.1 Weakness; E78.2 Mixed hyperlipidemia; I10 Essential (primary) hypertension; R94.31 Abnormal electrocardiogram [ECG] [EKG]; Z99.81 Dependence on supplemental oxygen; I25.10 Atherosclerotic heart disease of native coronary artery without angina pectoris; R60.0 Localized edema
CPT/HCPCS: 36415; 36430; 36600; 71010; 71020; 71275; 80053; 82270; 82550; 82553; 82803; 84484; 85018; 85025; 85378; 86850; 86900; 86901; 86922; 87040; 87205; 87502; 93005; 93306; 94640; 94760; 96365; 96374; 96375; 99284; A4222; C9113; P9016; S0028; J1200; J1940; J1956; J7620; J7626

== ENCOUNTER 2017-09-27 20:05 | Inpatient (IN) | payer OTHER, MEDICAID ==
[2017-09-27] MEDS ORDERED: DUONEB 0.5 MG/3 MG NEB ONE (22:17)
[2017-09-27] MEDS ORDERED: SOLU-Medrol 125 MG VIAL IVP ONE (22:17)
[2017-09-27] MEDS ORDERED: LASIX IVP ONE (22:19)
--- NOTE | 2017-09-27 22:19 | DR.GENAD ---
HPI - PCP Primary Care Physician: KEITH - HPI Comment HPI Comment: GETTING WORSE. USE FRIENDS OXYGEN AT HOME LAST NIGHT. SOB INCREASES WITH EXERTION. PATIENT IS WEAK. NO FEVER. COUGHING, PRODUCTIVE, YELLOW SPUTUM. RECENTLY IN HOSPITAL 08/10/2017 FOR SIMILAR SYMTOMS. HE WAS TREATED FOR PNEUMONIA. HAD BLOOD TRANSFUSION FOR ANEMIA. - Complaint/Symptoms Chief Complaint Doctors Comments: 76 YR OLD WM IN ED WITH INCREASING SOB TIMES ONE DAY. Chief Complaint:: SOB; LEGS SWOLLEN; HAD PNA X 2 WEEKS AGO AND WAS AN IP HERE; CT OF CHEST DONE IN [place] YESTERDAY PER DR. PARKER. PT USES O2 AT HOME AND BREATHING TX AT HOME; PT STATES HE IS NO BETTER. PT HAS HIATAL HERNIA - Nurses notes reviewed Nurses Notes Review: Yes - Source History Provided: Patient - Mode of Arrival Mode of Arrival: Ambulatory - Timing Onset of Chief Complaint: 09/26/17 Came on: Suddenly - Duration Duration: Constant Duration: Days - Severity Severity: Moderate PMH - PMH Past Medical History: Yes Past Medical History: Cirrhosis, COPD, Hypertension Past Medical History Comment: CABG X 3 Past Surgical History: Yes Surgical History: CABG/Valve Surgery Past Surgical History Comment: HERNIA REPAIR - Family History History of Family Medical Conditions: No Family Medical History: Cancer, [place] - Social History Alcohol Use: None Do you use any recreational Drugs:: No Lives With: Family Lives Where: Home - infectious screening In the last 2 months have you had wt loss of >10#?: NO Have you had fever, night sweats or hemotysis?: No Have you traveled outside the country in the last 6 months?: No Isolation: Standard ROS - Review of Systems Constitutional: Weakness, Fatigue, Loss of Appetite. negative: Chills, Fever Eyes: negative: Eye Pain, Discharge ENTM: Nose Congestion. negative: Ear Pain, Nose Discharge, Throat Pain Respiratoy: Productive Cough, Short of Breath, Wheezing. negative: Hemoptysis Cardiovascular: Chest Pain, Edema Gastrointestinal/Abdominal: No Symptoms Reported. negative: Diarrhea, Nausea, Vomiting Genitourinary: No Symptoms Reported Neurological: Headache, Weakness Musculoskeletal: Muscle Pain Integumentary: No Symptoms Reported Hematologic/Lymphatic: No Symptoms Reported Endocrine: No Symptoms Reported All Other Systems: Reviewed and Negative PE - Vital Signs Vitals: Temperature 98.7 F Pulse Rate 99 Respiratory Rate 26 Blood Pressure [Right Arm] 134/63 Blood Pressure 119/51 O2 Sat by Pulse Oximetry 94 - General Limitations: No Limitations General Appearance: Alert, In Distress - Head Head Exam: Normal Inspection - Eyes Eye exam: Normal Appearance. negative: Scleral Icterus, Conjunctival Injection - ENT ENT Exam: Normal External Ear Exam TM/Canal Exam: Bilateral Normal Nose Exam: Normal Nose Exam Mouth Exam: Normal Inspection Throat Exam: Normal Inspection - Neck Neck Exam: Trachea Midline - Chest Chest Inspection: Symmetric Chest Wall Rise - Respiratory Respiratory Exam: Normal Lung Sounds Bilat, Respiratory Distress Respiratory Exam: Bilateral Wheezing, Bilateral Rhonchi, Upper Wheezing, Upper Rhonchi, Lower Wheezing, Lower Rhonchi - Cardiovascular Cardiovascular Exam: Regular Rate, Normal Rhythm, Normal Heart Sounds - Abdominal Exam Abdominal Exam: Normal Bowel Sounds, Soft. negative: Tenderness - Extremities Extremities Exam: Normal Inspection - Back Back Exam: Normal Inspection - Neurologic Neurological Exam: Alert, Oriented X3 - Psychiatric Psychiatric Exam: Normal Affect, Normal Mood - Skin Skin Exam: Normal Color MDM - Additional Information Additional Information Obtained From: Family - Differential Diagnosis Differential Diagnosis: ANEMIA, RESPIRATORY DISTRESS, CHF. COPD EXACERBATION. [place] , PNEUMONIA Course - Treatment Treatment: SEE ORDERS - Consultation Consultation Comments: DISCUSS PATIENT WITH DR. SALAZAR. HE WILL ADMIT PATIENT. - Education/Counseling Education/Counseling: Patient, Education Educated On: Diagnosis ROR - Labs Reviewed Laboratory Results Reviewed?: Yes Result Diagrams: 09/29/17 06:05 09/29/17 06:05 Laboratory: WBC 7.2 X10^3/uL (3.6-10.0) 09/27/17 22:37 RBC 3.22 X10^6/uL (4.7-6.0) L 09/27/17 22:37 Hgb 7.0 g/dL (13.5-18.0) L 09/27/17 22:37 Hct 21.9 % (42.0-54.0) L 09/27/17 22:37 MCV 68.0 fL (80.0-100.0) L 09/27/17 22:37 MCH 21.6 pg (27.0-34.0) L 09/27/17 22:37 MCHC 31.8 g/dL (33.0-35.0) L 09/27/17 22:37 RDW 25.8 % (11.6-16.5) H 09/27/17 22:37 Plt Count 252 X10^3/uL (150.0-450.0) 09/27/17 22:37 Plt Count Comment Adequate (ADEQUATE) 09/27/17 22:37 MPV 10.4 fL (7.4-11.0) 09/27/17 22:37 Neut % 64.3 % (42.0-75.0) 09/27/17 22:37 Lymph % 20.0 % (21.0-51.0) L 09/27/17 22:37 [place] % 11.7 % (0.0-13.0) 09/27/17 22:37 Eos % 2.5 % (0.9-2.9) 09/27/17 22:37 Baso % 1.5 % (0.2-1.0) H 09/27/17 22:37 Neut # 4.6 x10^3/uL (2.2-4.8) 09/27/17 22:37 Lymph # 1.4 X10^3/uL (1.3-2.9) 09/27/17 22:37 [place] # 0.8 x10^3/uL (0.3-0.8) 09/27/17 22:37 Eos # 0.2 x10^3/uL (0.0-0.2) 09/27/17 22:37 Baso # 0.1 X10^3/uL (0.0-0.1) 09/27/17 22:37 Absolute Nucleated RBC 0.0 /100WBC 09/27/17 22:37 Plt Morphology Comment Normal (NORMAL) 09/27/17 22:37 RBC Morphology Abnormal (NORMAL) 09/27/17 22:37 Hypochromasia 2+ A 09/27/17 22:37 Poikilocytosis Slight A 09/27/17 22:37 Anisocytosis 3+ A 09/27/17 22:37 Microcytosis 1+ A 09/27/17 22:37 Sample Site Rr 09/27/17 22:14 ABG pH 7.460 (7.35-7.45) H 09/27/17 22:14 ABG pCO2 37.0 mmHg (35.0-45.0) 09/27/17 22:14 ABG pO2 84.0 mmHg (80.0-100.0) 09/27/17 22:14 ABG HCO3 26.3 mmol/L (22-26) H 09/27/17 22:14 ABG O2 Saturation 97.0 % (90-100) 09/27/17 22:14 ABG Base Excess 2.5 mmol/L (-2.0-2.0) H 09/27/17 22:14 Piotr Test Pos 09/27/17 22:14 A-a Gradient 19.0 mmHg 09/27/17 22:14 FiO2 21 09/27/17 22:14 Blood Gas Comments Audrey well ae 09/27/17 22:14 Sodium 135 mmol/L (136-145) L 09/27/17 22:37 Corrected Sodium TNP 09/27/17 22:37 Potassium 4.3 mmol/L (3.5-5.1) 09/27/17 22:37 Chloride 102 mmol/L (98-107) 09/27/17 22:37 Carbon Dioxide 26.2 mmol/L (21-32) 09/27/17 22:37 BUN 14 mg/dL (7-18) 09/27/17 22:37 Creatinine 0.89 mg/dL (0.70-1.30) 09/27/17 22:37 Est GFR (MDRD) Af Amer > 60 (>60) 09/27/17 22:37 Est GFR (MDRD) Non-Af > 60 (>60) 09/27/17 22:37 Glucose 95 mg/dL (65-99) 09/27/17 22:37 Calcium 8.1 mg/dL (8.5-10.1) L 09/27/17 22:37 Corrected Calcium 8.9 mg/dL (8.5-10.1) 09/27/17 22:37 Total Bilirubin 0.40 mg/dL (0.2-1.0) 09/27/17 22:37 AST 32 Units/L (15-37) 09/27/17 22:37 ALT 17 Units/L (12-78) 09/27/17 22:37 Alkaline Phosphatase 84 Units/L (46-116) 09/27/17 22:37 Creatine Kinase 71 Units/L (39-308) 09/27/17 22:37 CK-MB (CK-2) 1.0 ng/mL (0-4.0) 09/27/17 22:37 CK/CKMB % Calc 1.4 % (<4) 09/27/17 22:37 Troponin I 0.04 ng/mL (0-1.5) 09/27/17 22:37 Total Protein 7.2 g/dL (6.4-8.2) 09/27/17 22:37 Albumin 3.0 g/dL (3.4-5.0) L 09/27/17 22:37 Globulin 4.2 g/dL (2.5-4.5) 09/27/17 22:37 Albumin/Globulin Ratio 0.7 Ratio (1.1-2.1) L 09/27/17 22:37 - EKG [place]: Normal (EKG NOTED) - Diagnosis Discharge Problem: Anemia, COPD exacerbation, Generalized weakness - Discharge Plan Disposition: ADMITTED INPATIENT Condition: Stable - Follow ups/Referrals - Instructions
[2017-09-27] MEDS ORDERED: LASIX ONE (22:22)
[2017-09-27] MEDS ORDERED: SOLU-Medrol 125 MG VIAL ONE (22:22)
[2017-09-27 22:39] LABS: ABG ALLEN TEST POS; ABG BASE EXCESS 2.5 mmol/L (-2.0-2.0); ABG HCO3 26.3 mmol/L (22-26); FRACTIONATED INSPIRED OXYGEN 21
[2017-09-27 22:50] LABS: BASOPHILS # (AUTO) 0.1 X10^3/uL (0.0-0.1); MONOCYTES # (AUTO) 0.8 x10^3/uL (0.3-0.8); MONOCYTES % (AUTO) 11.7 % (0.0-13.0); RED BLOOD COUNT 3.22 X10^6/uL (4.7-6.0)
[2017-09-27 23:02] LABS: BASOPHILS % (AUTO) 1.5 % (0.2-1.0); EOSINOPHILS # (AUTO) 0.2 x10^3/uL (0.0-0.2); EOSINOPHILS % (AUTO) 2.5 % (0.9-2.9); HEMATOCRIT 21.9 % (42.0-54.0); LYMPHOCYTES # (AUTO) 1.4 X10^3/uL (1.3-2.9); MEAN CORPUSCULAR HEMOGLOBIN 21.6 pg (27.0-34.0); MEAN CORPUSCULAR HGB CONC 31.8 g/dL (33.0-35.0); MEAN PLATELET VOLUME 10.4 fL (7.4-11.0); NEUTROPHILS # (AUTO) 4.6 x10^3/uL (2.2-4.8); NEUTROPHILS % (AUTO) 64.3 % (42.0-75.0); PLATELET COUNT 252 X10^3/uL (150.0-450.0); RED CELL DISTRIBUTION WIDTH 25.8 % (11.6-16.5); WHITE BLOOD COUNT 7.2 X10^3/uL (3.6-10.0)
[2017-09-27 23:03] LABS: BLOOD UREA NITROGEN 14 mg/dL (7-18); CALCIUM 8.1 mg/dL (8.5-10.1); CARBON DIOXIDE 26.2 mmol/L (21-32); CHLORIDE 102 mmol/L (98-107); CREATININE 0.89 mg/dL (0.70-1.30); SODIUM 135 mmol/L (136-145); TROPONIN I 0.04 ng/mL (0-1.5); eGFR BLACK RACES > 60 (>60); eGFR NON BLACK RACES > 60 (>60)
[2017-09-27 23:07] LABS: ALANINE AMINOTRANSFERASE 17 Units/L (12-78); ALKALINE PHOSPHATASE 84 Units/L (46-116); ASPARTATE AMINO TRANSFERASE 32 Units/L (15-37); CKMB % 1.4 % (<4); COR CA(FOR HYPOALB) 8.9 mg/dL (8.5-10.1); CREATINE KINASE 71 Units/L (39-308); TOTAL PROTEIN 7.2 g/dL (6.4-8.2)
[2017-09-27 23:09] LABS: ANISOCYTOSIS 3+; HYPOCHROMASIA 2+; PLATELET MORPHOLOGY COMMENT NORMAL (NORMAL); POIKILOCYTOSIS SLIGHT
[2017-09-27 23:10] LABS: MICROCYTOSIS 1+
[2017-09-28] MEDS: NS 1000 ML 1,000 ML IV SCH ×2 (02:43→14:50)
[2017-09-28] MEDS ORDERED: NS 500 ML IV 500 ML IV ONE (03:54)
[2017-09-28 04:35] LABS: BILIRUBIN,URINE NEGATIVE (NEGATIVE); BLOOD/HEMOGLOBIN,URINE NEGATIVE (NEGATIVE); GLUCOSE, URINE NEGATIVE (NEGATIVE); KETONES,URINE 1+ (NEGATIVE); LEUKOCYTE ESTERASE ,URINE NEGATIVE (NEGATIVE); NITRITES,URINE NEGATIVE (NEGATIVE); PROTEIN,URINE NEGATIVE (NEGATIVE); UROBILINOGEN,URINE NORMAL (NORMAL)
[2017-09-28 04:44] VITALS: BMI 25.9
[2017-09-28 04:46] LABS: APPEARANCE,URINE CLEAR (CLEAR); BACTERIA,URINE NEGATIVE /HPF (NEGATIVE); COLOR,URINE YELLOW (YELLOW); RBC,URINE 0-3 /HPF (NEGATIVE); SQUAMOUS EPITHELIAL CELL,UR RARE /HPF (NEGATIVE)
[2017-09-28] MEDS: PROVENTIL NEB TX 0.083% 2.5MG/ 3ML NEB PRN ×2 (10:37→18:00)
[2017-09-28 14:09] LABS: BASOPHILS % (AUTO) 0.5 % (0.2-1.0); HEMATOCRIT 28.6 % (42.0-54.0); HEMOGLOBIN 9.2 g/dL (13.5-18.0); LYMPHOCYTES # (AUTO) 0.3 X10^3/uL (1.3-2.9); LYMPHOCYTES % (AUTO) 7.9 % (21.0-51.0); MEAN CORPUSCULAR HEMOGLOBIN 23.1 pg (27.0-34.0); MEAN PLATELET VOLUME 9.2 fL (7.4-11.0); MONOCYTES # (AUTO) 0.2 x10^3/uL (0.3-0.8); MONOCYTES % (AUTO) 5.5 % (0.0-13.0); NEUTROPHILS # (AUTO) 3.7 x10^3/uL (2.2-4.8); NEUTROPHILS % (AUTO) 86.1 % (42.0-75.0); PLATELET COUNT 227 X10^3/uL (150.0-450.0); RED BLOOD COUNT 3.97 X10^6/uL (4.7-6.0); RED CELL DISTRIBUTION WIDTH 28.8 % (11.6-16.5); WHITE BLOOD COUNT 4.3 X10^3/uL (3.6-10.0)
[2017-09-28 14:22] LABS: ANISOCYTOSIS 1+; HYPOCHROMASIA 2+; PLATELET MORPHOLOGY COMMENT NORMAL (NORMAL)
[2017-09-28 14:28] LABS: ALANINE AMINOTRANSFERASE 20 Units/L (12-78); ALBUMIN 2.9 g/dL (3.4-5.0); ALKALINE PHOSPHATASE 90 Units/L (46-116); ASPARTATE AMINO TRANSFERASE 27 Units/L (15-37); BLOOD UREA NITROGEN 17 mg/dL (7-18); CALCIUM 8.2 mg/dL (8.5-10.1); CARBON DIOXIDE 25.8 mmol/L (21-32); CHLORIDE 100 mmol/L (98-107); CKMB % 1.5 % (<4); COR CA(FOR HYPOALB) 9.1 mg/dL (8.5-10.1); COR NA(FOR HYPERGLY) 135 mmol/L (136-145); CREATINE KINASE 73 Units/L (39-308); CREATINE KINASE MB 1.1 ng/mL (0-4.0); CREATININE 1.12 mg/dL (0.70-1.30); MAGNESIUM 1.7 mg/dL (1.7-2.9); SODIUM 132 mmol/L (136-145); TOTAL PROTEIN 7.2 g/dL (6.4-8.2); TROPONIN I 0.02 ng/mL (0-1.5); eGFR BLACK RACES > 60 (>60); eGFR NON BLACK RACES > 60 (>60)
[2017-09-28] MEDS ORDERED: RESTORIL CAP 15 MG PO PRN (21:10)
[2017-09-28 23:59] LABS: HEMATOCRIT 27.1 % (42.0-54.0); HEMOGLOBIN 8.7 g/dL (13.5-18.0)
[2017-09-29] MEDS: NS 1000 ML 1,000 ML IV SCH (05:58)
[2017-09-29 06:37] LABS: BASOPHILS % (AUTO) 0.2 % (0.2-1.0); EOSINOPHILS % (AUTO) 0.1 % (0.9-2.9); LYMPHOCYTES # (AUTO) 1.3 X10^3/uL (1.3-2.9); LYMPHOCYTES % (AUTO) 13.9 % (21.0-51.0); MEAN CORPUSCULAR VOLUME 71.8 fL (80.0-100.0); MEAN PLATELET VOLUME 9.9 fL (7.4-11.0); MONOCYTES # (AUTO) 0.9 x10^3/uL (0.3-0.8); MONOCYTES % (AUTO) 10.1 % (0.0-13.0); NEUTROPHILS # (AUTO) 6.9 x10^3/uL (2.2-4.8); NEUTROPHILS % (AUTO) 75.7 % (42.0-75.0); PLATELET COUNT 223 X10^3/uL (150.0-450.0); RED CELL DISTRIBUTION WIDTH 28.5 % (11.6-16.5); WHITE BLOOD COUNT 9.1 X10^3/uL (3.6-10.0)
[2017-09-29 06:55] LABS: ALANINE AMINOTRANSFERASE 23 Units/L (12-78); ALBUMIN 2.9 g/dL (3.4-5.0); ALKALINE PHOSPHATASE 77 Units/L (46-116); ASPARTATE AMINO TRANSFERASE 28 Units/L (15-37); BLOOD UREA NITROGEN 20 mg/dL (7-18); CHLORIDE 104 mmol/L (98-107); COR CA(FOR HYPOALB) 8.9 mg/dL (8.5-10.1); CREATININE 0.83 mg/dL (0.70-1.30); SODIUM 136 mmol/L (136-145); TOTAL PROTEIN 6.8 g/dL (6.4-8.2); eGFR BLACK RACES > 60 (>60); eGFR NON BLACK RACES > 60 (>60)
[2017-09-29 07:21] LABS: ANISOCYTOSIS 3+; HYPOCHROMASIA 1+; PLATELET MORPHOLOGY COMMENT NORMAL (NORMAL)
[2017-09-29 11:47] VITALS: BP 127/72
== END 2017-09-29 12:00 | disposition home or self-care (01) | DRG 812 ==
LOC: ER 20:05 → UNDOADMIN 09-28 01:48 → ICU 09-28 01:48 → MED/SURG 09-28 01:48
PROVIDERS: ADMIT Internal Medicine; ATTEND Internal Medicine
PROC: 30233N1 Transfusion of Nonautologous Red Blood Cells into Peripheral Vein, Percutaneous Approach (ICD-10-PCS; principal; 2017-09-28)
PROC: 30233N1 Transfusion of Nonautologous Red Blood Cells into Peripheral Vein, Percutaneous Approach (ICD-10-PCS; 2017-09-28)
DX: D64.89 Other specified anemias (principal); J44.1 Chronic obstructive pulmonary disease with (acute) exacerbation; D50.8 Other iron deficiency anemias; R06.03 Acute respiratory distress; I50.9 Heart failure, unspecified; R06.02 Shortness of breath; R53.1 Weakness; R94.31 Abnormal electrocardiogram [ECG] [EKG]; I25.10 Atherosclerotic heart disease of native coronary artery without angina pectoris; I10 Essential (primary) hypertension; R60.1 Generalized edema
CPT/HCPCS: 36415; 36430; 36600; 80053; 81001; 82550; 82553; 82607; 82728; 82746; 82803; 83540; 83735; 84466; 84484; 85014; 85018; 85025; 85610; 85730; 86850; 86900; 86901; 86922; 93005; 93010; 94640; 94760; 96365; 96374; 96375; 99284; A4222; P9016; J1940; J2930; J7613; J7620